=== PATIENT | female | born 1960 | race Caucasian/White ===

== ENCOUNTER 2021-03-30 17:39 | Inpatient (IN) ==
[2021-03-31] MEDS ORDERED: Saline Nasal Spray 44 ML BOTTLE NS PRN (01:04)
[2021-03-31] MEDS: predniSONE 20 MG TABLET PO SCH (09:13)
[2021-03-31] MEDS: Mirtazapine 15 MG TABLET PO SCH (09:13)
[2021-03-31] MEDS: Folic Acid 1 MG TABLET PO SCH (09:13)
[2021-03-31] MEDS: Tacrolimus [Prograf] 1 MG PO SCH ×2 (09:14→20:27)
[2021-03-31 10:14] LABS: Calcium 8.9 mg/dL (8.6-10.3); Potassium 4.2 mEq/L (3.5-5.1)
[2021-03-31 10:15] LABS: Eosinophils % 0.4 %; Hematocrit 24.6 % (35.3-44.9); Hemoglobin 7.2 g/dL (11.5-15.4); Immature Granulocytes % 1.4 % (0-4); Lymphocytes # 0.6 K/mcL (0.6-4.6); Lymphocytes % 21.6 %; Mean Corpuscular HGB Conc 29.3 g/dL (31.6-35.5); Mean Corpuscular Hemoglobin 28.8 pg (28.0-33.3); Mean Corpuscular Volume 98.4 fL (83.0-100.0); Mean Platelet Volume 12.9 fL (9.4-12.4); Monocytes # 0.2 K/mcL (0.0-1.3); Monocytes % 6.7 %; Red Cell Distribution Width 15.3 % (11.5-14.5); Segmented Neutrophils % 69.9 %; White Blood Count 2.8 K/mcL (4.3-11.1)
[2021-03-31 10:31] LABS: Platelet Count 89 K/mcL (140-400)
[2021-03-31] MEDS: Tobramycin for INHALATION 300 MG/5 ML AMPUL IH SCH ×2 (11:11→20:44)
[2021-04-01] MEDS: Mirtazapine 15 MG TABLET PO SCH (08:29)
[2021-04-01] MEDS: predniSONE 20 MG TABLET PO SCH (08:29)
[2021-04-01] MEDS: Folic Acid 1 MG TABLET PO SCH (08:29)
[2021-04-01] MEDS: Tacrolimus [Prograf] 1 MG PO SCH ×2 (08:30→19:47)
[2021-04-01] MEDS: Tobramycin for INHALATION 300 MG/5 ML AMPUL IH SCH ×2 (11:07→21:36)
[2021-04-02] MEDS: Tobramycin for INHALATION 300 MG/5 ML AMPUL IH SCH ×2 (09:56→21:57)
[2021-04-02] MEDS: predniSONE 20 MG TABLET PO SCH (10:01)
[2021-04-02] MEDS: Mirtazapine 15 MG TABLET PO SCH (10:01)
[2021-04-02] MEDS: Folic Acid 1 MG TABLET PO SCH (10:01)
[2021-04-02] MEDS: Tacrolimus [Prograf] 1 MG PO SCH ×2 (10:03→20:35)
[2021-04-02] MEDS: Sulfamethoxazole/Trimeth Oral Soln 400-80mg/10 ML UDC PO SCH (10:06)
[2021-04-02] MEDS ORDERED: *HR* Metoprolol 5 MG/5 ML VIAL IVP ONE ×2 (17:12→17:15)
[2021-04-03] MEDS: Mirtazapine 15 MG TABLET PO SCH (08:04)
[2021-04-03] MEDS: Folic Acid 1 MG TABLET PO SCH (08:04)
[2021-04-03] MEDS: predniSONE 20 MG TABLET PO SCH (08:05)
[2021-04-03] MEDS: Tacrolimus [Prograf] 1 MG PO SCH ×2 (08:49→23:33)
[2021-04-03] MEDS: Tobramycin for INHALATION 300 MG/5 ML AMPUL IH SCH ×2 (10:13→21:48)
[2021-04-03 17:47] LABS: Calcium 8.7 mg/dL (8.6-10.3); Magnesium 2.1 mg/dL (1.6-2.6); Potassium 4.8 mEq/L (3.5-5.1)
[2021-04-04] MEDS: Mirtazapine 15 MG TABLET PO SCH (07:55)
[2021-04-04] MEDS: predniSONE 20 MG TABLET PO SCH (07:56)
[2021-04-04] MEDS: Folic Acid 1 MG TABLET PO SCH (07:57)
[2021-04-04] MEDS: Tacrolimus [Prograf] 1 MG PO SCH ×2 (07:57→20:12)
[2021-04-04] MEDS: Ondansetron 4 MG/2 ML VIAL IVP PRN (09:07)
[2021-04-04] MEDS: Tobramycin for INHALATION 300 MG/5 ML AMPUL IH SCH ×2 (10:04→20:35)
[2021-04-04] MEDS: Sulfamethoxazole/Trimeth Oral Soln 400-80mg/10 ML UDC PO SCH (10:34)
[2021-04-04] MEDS ORDERED: *HR* Metoprolol 5 MG/5 ML VIAL IVP ONE ×2 (17:28→17:30)
[2021-04-05] MEDS: Folic Acid 1 MG TABLET PO SCH (08:19)
[2021-04-05] MEDS: predniSONE 20 MG TABLET PO SCH (08:19)
[2021-04-05] MEDS: Mirtazapine 15 MG TABLET PO SCH (08:19)
[2021-04-05] MEDS: Tacrolimus [Prograf] 1 MG PO SCH ×2 (08:21→19:47)
[2021-04-05] MEDS: Tobramycin for INHALATION 300 MG/5 ML AMPUL IH SCH ×2 (10:00→21:06)
[2021-04-06] MEDS: Folic Acid 1 MG TABLET PO SCH (08:43)
[2021-04-06] MEDS: predniSONE 20 MG TABLET PO SCH (08:43)
[2021-04-06] MEDS: Tacrolimus [Prograf] 1 MG PO SCH ×2 (08:44→20:48)
[2021-04-06] MEDS: Mirtazapine 15 MG TABLET PO SCH (08:44)
[2021-04-06] MEDS: Tobramycin for INHALATION 300 MG/5 ML AMPUL IH SCH ×2 (10:11→22:28)
[2021-04-06] MEDS: Sulfamethoxazole/Trimeth Oral Soln 400-80mg/10 ML UDC PO SCH (10:35)
[2021-04-06] MEDS ORDERED: *HR* Metoprolol 5 MG/5 ML VIAL IVP PRN (16:29)
[2021-04-07 08:36] LABS: Basophils % 0.2 %; Eosinophils % 0.7 %; Hematocrit 23.5 % (35.3-44.9); Hemoglobin 7.2 g/dL (11.5-15.4); Immature Granulocytes % 1.2 % (0-4); Lymphocytes # 0.8 K/mcL (0.6-4.6); Lymphocytes % 19.1 %; Mean Corpuscular HGB Conc 30.6 g/dL (31.6-35.5); Mean Corpuscular Hemoglobin 29.6 pg (28.0-33.3); Mean Corpuscular Volume 96.7 fL (83.0-100.0); Mean Platelet Volume 12.7 fL (9.4-12.4); Monocytes # 0.3 K/mcL (0.0-1.3); Monocytes % 7.4 %; Nucleated Red Blood Cells 0.5 /100 WBC (0); Platelet Count 136 K/mcL (140-400); Red Blood Count 2.43 M/mcL (3.82-4.97); Red Cell Distribution Width 16.8 % (11.5-14.5); Segmented Neutrophils % 71.4 %; White Blood Count 4.2 K/mcL (4.3-11.1)
[2021-04-07 08:55] LABS: Calcium 8.6 mg/dL (8.6-10.3); Potassium 5.2 mEq/L (3.5-5.1)
[2021-04-07] MEDS: predniSONE 20 MG TABLET PO SCH (10:34)
[2021-04-07] MEDS: Folic Acid 1 MG TABLET PO SCH (10:34)
[2021-04-07] MEDS: Mirtazapine 15 MG TABLET PO SCH (10:35)
[2021-04-07] MEDS: Tacrolimus [Prograf] 1 MG PO SCH ×2 (10:37→18:42)
[2021-04-07] MEDS: Albuterol 2.5 MG/3 ML NEBULIZER IH PRN (13:17)
[2021-04-08] MEDS: predniSONE 20 MG TABLET PO SCH (08:00)
[2021-04-08] MEDS: Folic Acid 1 MG TABLET PO SCH (08:00)
[2021-04-08] MEDS: Mirtazapine 15 MG TABLET PO SCH (08:00)
[2021-04-08] MEDS: Tacrolimus [Prograf] 1 MG PO SCH ×2 (08:01→20:36)
[2021-04-09] MEDS: Mirtazapine 15 MG TABLET PO SCH (09:23)
[2021-04-09] MEDS: Folic Acid 1 MG TABLET PO SCH (09:30)
[2021-04-09] MEDS: Sulfamethoxazole/Trimeth Oral Soln 400-80mg/10 ML UDC PO SCH (09:36)
[2021-04-09] MEDS: Tacrolimus [Prograf] 1 MG PO SCH ×2 (10:41→19:46)
[2021-04-09] MEDS: Albuterol 2.5 MG/3 ML NEBULIZER IH PRN (19:51)
[2021-04-10] MEDS: Albuterol 2.5 MG/3 ML NEBULIZER IH PRN ×2 (05:11→17:46)
[2021-04-10] MEDS: Folic Acid 1 MG TABLET PO SCH (08:20)
[2021-04-10] MEDS: Mirtazapine 15 MG TABLET PO SCH (08:20)
[2021-04-10] MEDS: Tacrolimus [Prograf] 1 MG PO SCH ×2 (08:21→21:16)
[2021-04-11] MEDS: Albuterol 2.5 MG/3 ML NEBULIZER IH PRN ×2 (02:20→20:23)
[2021-04-11] MEDS: Sulfamethoxazole/Trimeth Oral Soln 400-80mg/10 ML UDC PO SCH (09:14)
[2021-04-11] MEDS: Mirtazapine 15 MG TABLET PO SCH (09:14)
[2021-04-11] MEDS: Folic Acid 1 MG TABLET PO SCH (09:14)
[2021-04-11] MEDS: Tacrolimus [Prograf] 1 MG PO SCH ×2 (09:17→20:54)
[2021-04-11 09:38] LABS: Eosinophils # 0.1 K/mcL (0.0-0.6); Eosinophils % 1.5 %; Hematocrit 24.3 % (35.3-44.9); Hemoglobin 7.1 g/dL (11.5-15.4); Immature Granulocytes % 0.3 % (0-4); Lymphocytes # 0.6 K/mcL (0.6-4.6); Lymphocytes % 17.5 %; Mean Corpuscular HGB Conc 29.2 g/dL (31.6-35.5); Mean Corpuscular Volume 99.2 fL (83.0-100.0); Mean Platelet Volume 11.7 fL (9.4-12.4); Monocytes # 0.4 K/mcL (0.0-1.3); Neutrophils # 2.3 K/mcL (1.6-8.9); Red Blood Count 2.45 M/mcL (3.82-4.97); Segmented Neutrophils % 69.7 %; White Blood Count 3.3 K/mcL (4.3-11.1)
[2021-04-11 09:45] LABS: Platelet Count 87 K/mcL (140-400)
[2021-04-11 10:06] LABS: Calcium 8.8 mg/dL (8.6-10.3); Potassium 5.4 mEq/L (3.5-5.1)
[2021-04-11 11:01] LABS: Platelet Estimate Decreased (Normal)
[2021-04-11] MEDS ORDERED: *HR* LORazepam 2 MG/ML VIAL IVP ONE (14:56)
[2021-04-12] MEDS: Albuterol 2.5 MG/3 ML NEBULIZER IH PRN ×2 (02:42→16:58)
[2021-04-12] MEDS: Mirtazapine 15 MG TABLET PO SCH (08:34)
[2021-04-12] MEDS: Folic Acid 1 MG TABLET PO SCH (08:34)
[2021-04-12] MEDS: Tacrolimus [Prograf] 1 MG PO SCH ×2 (08:35→20:28)
[2021-04-13] MEDS: Albuterol 2.5 MG/3 ML NEBULIZER IH PRN (01:23)
[2021-04-13] MEDS: Mirtazapine 15 MG TABLET PO SCH (08:49)
[2021-04-13] MEDS: Tacrolimus [Prograf] 1 MG PO SCH ×2 (09:00→19:59)
[2021-04-13] MEDS: *HR* LORazepam 0.5 MG TABLET PO PRN (11:05)
[2021-04-13] MEDS: Folic Acid 1 MG TABLET PO SCH (16:58)
[2021-04-13] MEDS: Sulfamethoxazole/Trimeth Oral Soln 400-80mg/10 ML UDC PO SCH (16:58)
[2021-04-14 07:21] LABS: Hematocrit 22.7 % (35.3-44.9); Hemoglobin 6.6 g/dL (11.5-15.4); Mean Corpuscular HGB Conc 29.1 g/dL (31.6-35.5); Mean Corpuscular Hemoglobin 29.2 pg (28.0-33.3); Mean Corpuscular Volume 100.4 fL (83.0-100.0); Mean Platelet Volume 10.3 fL (9.4-12.4); Red Blood Count 2.26 M/mcL (3.82-4.97); Red Cell Distribution Width 18.5 % (11.5-14.5); White Blood Count 2.7 K/mcL (4.3-11.1)
[2021-04-14 07:34] LABS: Platelet Count 67 K/mcL (140-400)
[2021-04-14 07:47] LABS: Calcium 8.1 mg/dL (8.6-10.3); Potassium 4.5 mEq/L (3.5-5.1)
[2021-04-14] MEDS: Tacrolimus [Prograf] 1 MG PO SCH ×2 (08:27→20:26)
[2021-04-14] MEDS: Folic Acid 1 MG TABLET PO SCH (08:27)
[2021-04-14] MEDS: Mirtazapine 15 MG TABLET PO SCH (08:27)
[2021-04-14] MEDS ORDERED: 0.9 % Sodium Chloride 250 ML IVC SCH (13:00)
[2021-04-14] MEDS: *HR* LORazepam 0.5 MG TABLET PO PRN (20:32)
[2021-04-14] MEDS: Albuterol 2.5 MG/3 ML NEBULIZER IH PRN (20:53)
[2021-04-15 06:54] LABS: Eosinophils % 1.7 %; Hematocrit 27.1 % (35.3-44.9); Immature Granulocytes % 0.8 % (0-4); Lymphocytes # 0.5 K/mcL (0.6-4.6); Lymphocytes % 20.2 %; Mean Corpuscular HGB Conc 29.5 g/dL (31.6-35.5); Mean Corpuscular Hemoglobin 29.9 pg (28.0-33.3); Mean Corpuscular Volume 101.1 fL (83.0-100.0); Mean Platelet Volume 10.5 fL (9.4-12.4); Monocytes # 0.3 K/mcL (0.0-1.3); Monocytes % 13.6 %; Neutrophils # 1.5 K/mcL (1.6-8.9); Red Blood Count 2.68 M/mcL (3.82-4.97); Red Cell Distribution Width 17.9 % (11.5-14.5); Segmented Neutrophils % 63.7 %; White Blood Count 2.4 K/mcL (4.3-11.1)
[2021-04-15 07:07] LABS: Platelet Count 66 K/mcL (140-400)
[2021-04-15 07:40] LABS: Platelet Estimate Marked Decrease (Normal)
[2021-04-15] MEDS: Folic Acid 1 MG TABLET PO SCH (08:24)
[2021-04-15] MEDS: Tacrolimus [Prograf] 1 MG PO SCH ×2 (08:25→21:14)
[2021-04-15] MEDS: Mirtazapine 15 MG TABLET PO SCH (08:25)
[2021-04-15] MEDS: *HR* LORazepam 0.5 MG TABLET PO PRN (21:14)
[2021-04-16 06:57] LABS: Hemoglobin 7.9 g/dL (11.5-15.4); Mean Corpuscular HGB Conc 29.3 g/dL (31.6-35.5); Mean Corpuscular Hemoglobin 29.9 pg (28.0-33.3); Mean Corpuscular Volume 102.3 fL (83.0-100.0); Mean Platelet Volume 11.8 fL (9.4-12.4); Red Blood Count 2.64 M/mcL (3.82-4.97); Red Cell Distribution Width 17.2 % (11.5-14.5); White Blood Count 3.6 K/mcL (4.3-11.1)
[2021-04-16 06:59] LABS: Platelet Count 78 K/mcL (140-400)
[2021-04-16 07:22] LABS: Calcium 8.9 mg/dL (8.6-10.3); Magnesium 2.2 mg/dL (1.6-2.6); Potassium 5.4 mEq/L (3.5-5.1)
[2021-04-16] MEDS: Mirtazapine 15 MG TABLET PO SCH (09:05)
[2021-04-16] MEDS: Tacrolimus [Prograf] 1 MG PO SCH ×2 (09:05→20:15)
[2021-04-16] MEDS: Folic Acid 1 MG TABLET PO SCH (09:05)
[2021-04-16] MEDS: Sulfamethoxazole/Trimeth Oral Soln 400-80mg/10 ML UDC PO SCH ×2 (09:07→09:16)
[2021-04-16] MEDS: *HR* LORazepam 0.5 MG TABLET PO PRN (17:59)
[2021-04-16] MEDS ORDERED: Tobramycin for INHALATION 300 MG/5 ML AMPUL IH SCH (18:00)
[2021-04-16] MEDS: Albuterol 2.5 MG/3 ML NEBULIZER IH PRN (20:43)
[2021-04-16] MEDS: Tobramycin for INHALATION 300 MG/5 ML AMPUL IH SCH (20:43)
[2021-04-17 08:40] LABS: Basophils % 0.4 %; Eosinophils # 0.1 K/mcL (0.0-0.6); Eosinophils % 2.7 %; Hemoglobin 7.6 g/dL (11.5-15.4); Immature Granulocytes % 0.4 % (0-4); Lymphocytes # 0.6 K/mcL (0.6-4.6); Mean Corpuscular HGB Conc 29.2 g/dL (31.6-35.5); Mean Corpuscular Hemoglobin 29.3 pg (28.0-33.3); Mean Corpuscular Volume 100.4 fL (83.0-100.0); Mean Platelet Volume 11.2 fL (9.4-12.4); Monocytes # 0.3 K/mcL (0.0-1.3); Monocytes % 11.7 %; Neutrophils # 1.3 K/mcL (1.6-8.9); Red Blood Count 2.59 M/mcL (3.82-4.97); Red Cell Distribution Width 17.2 % (11.5-14.5); Segmented Neutrophils % 58.8 %; White Blood Count 2.2 K/mcL (4.3-11.1)
[2021-04-17 08:44] LABS: Platelet Count 64 K/mcL (140-400)
[2021-04-17] MEDS: Folic Acid 1 MG TABLET PO SCH (08:55)
[2021-04-17] MEDS: Mirtazapine 15 MG TABLET PO SCH (08:56)
[2021-04-17] MEDS: Tacrolimus [Prograf] 1 MG PO SCH ×2 (08:56→20:13)
[2021-04-17] MEDS: Tobramycin for INHALATION 300 MG/5 ML AMPUL IH SCH ×2 (10:41→22:05)
[2021-04-17] MEDS: *HR* LORazepam 0.5 MG TABLET PO PRN (23:04)
[2021-04-18 07:27] LABS: Eosinophils # 0.1 K/mcL (0.0-0.6); Hematocrit 26.2 % (35.3-44.9); Hemoglobin 7.6 g/dL (11.5-15.4); Mean Corpuscular Hemoglobin 29.3 pg (28.0-33.3); Mean Corpuscular Volume 101.2 fL (83.0-100.0); Mean Platelet Volume 11.8 fL (9.4-12.4); Red Blood Count 2.59 M/mcL (3.82-4.97); Red Cell Distribution Width 17.1 % (11.5-14.5)
[2021-04-18 07:40] LABS: Calcium 8.7 mg/dL (8.6-10.3); Potassium 4.3 mEq/L (3.5-5.1)
[2021-04-18 07:45] LABS: Platelet Count 75 K/mcL (140-400)
[2021-04-18] MEDS: Mirtazapine 15 MG TABLET PO SCH (07:51)
[2021-04-18] MEDS: *HR* LORazepam 0.5 MG TABLET PO PRN ×2 (07:52→17:52)
[2021-04-18] MEDS: Tacrolimus [Prograf] 1 MG PO SCH ×2 (07:52→19:41)
[2021-04-18] MEDS: Folic Acid 1 MG TABLET PO SCH (07:52)
[2021-04-18 08:21] LABS: Lymphocytes # 0.7 K/mcL (0.6-4.6); Neutrophils # 1.2 K/mcL (1.6-8.9)
[2021-04-18 08:22] LABS: Platelet Estimate Decreased (Normal)
[2021-04-18] MEDS: Sulfamethoxazole/Trimeth Oral Soln 400-80mg/10 ML UDC PO SCH (09:59)
[2021-04-18] MEDS: Tobramycin for INHALATION 300 MG/5 ML AMPUL IH SCH ×2 (10:35→21:48)
[2021-04-19] MEDS: Mirtazapine 15 MG TABLET PO SCH (08:39)
[2021-04-19] MEDS: *HR* LORazepam 0.5 MG TABLET PO PRN (08:40)
[2021-04-19] MEDS: Folic Acid 1 MG TABLET PO SCH (08:40)
[2021-04-19] MEDS: Tacrolimus [Prograf] 1 MG PO SCH ×2 (08:43→20:49)
[2021-04-19] MEDS: Tobramycin for INHALATION 300 MG/5 ML AMPUL IH SCH ×2 (10:19→20:43)
[2021-04-20] MEDS: Mirtazapine 15 MG TABLET PO SCH (08:09)
[2021-04-20] MEDS: Tacrolimus [Prograf] 1 MG PO SCH ×2 (08:10→21:35)
[2021-04-20] MEDS: Folic Acid 1 MG TABLET PO SCH (08:10)
[2021-04-20] MEDS: Sulfamethoxazole/Trimeth Oral Soln 400-80mg/10 ML UDC PO SCH (08:15)
[2021-04-20] MEDS: Tobramycin for INHALATION 300 MG/5 ML AMPUL IH SCH ×2 (09:49→22:30)
[2021-04-20] MEDS: *HR* LORazepam 0.5 MG TABLET PO PRN ×2 (12:45→17:40)
[2021-04-21 08:23] LABS: Hematocrit 28.4 % (35.3-44.9); Hemoglobin 8.1 g/dL (11.5-15.4)
[2021-04-21] MEDS: Ondansetron 4 MG/2 ML VIAL IVP PRN ×2 (08:58→21:16)
[2021-04-21] MEDS: Folic Acid 1 MG TABLET PO SCH (09:01)
[2021-04-21] MEDS: Tacrolimus [Prograf] 1 MG PO SCH ×2 (09:01→21:17)
[2021-04-21] MEDS: Mirtazapine 15 MG TABLET PO SCH (09:02)
[2021-04-21] MEDS: Tobramycin for INHALATION 300 MG/5 ML AMPUL IH SCH ×2 (10:41→21:56)
[2021-04-22] MEDS: Ondansetron 4 MG/2 ML VIAL IVP PRN ×2 (06:54→21:25)
[2021-04-22 08:24] LABS: Basophils % 0.4 %; Eosinophils # 0.1 K/mcL (0.0-0.6); Eosinophils % 2.8 %; Hematocrit 29.7 % (35.3-44.9); Hemoglobin 8.3 g/dL (11.5-15.4); Immature Granulocytes % 0.4 % (0-4); Lymphocytes # 0.9 K/mcL (0.6-4.6); Lymphocytes % 37.2 %; Mean Corpuscular HGB Conc 27.9 g/dL (31.6-35.5); Mean Corpuscular Volume 107.2 fL (83.0-100.0); Mean Platelet Volume 11.5 fL (9.4-12.4); Monocytes # 0.2 K/mcL (0.0-1.3); Monocytes % 9.7 %; Neutrophils # 1.2 K/mcL (1.6-8.9); Red Blood Count 2.77 M/mcL (3.82-4.97); Red Cell Distribution Width 17.5 % (11.5-14.5); Segmented Neutrophils % 49.5 %; White Blood Count 2.5 K/mcL (4.3-11.1)
[2021-04-22 08:33] LABS: Platelet Count 99 K/mcL (140-400)
[2021-04-22 08:37] LABS: Calcium 9.3 mg/dL (8.6-10.3); Potassium 4.3 mEq/L (3.5-5.1)
[2021-04-22] MEDS: Mirtazapine 15 MG TABLET PO SCH (08:37)
[2021-04-22] MEDS: Folic Acid 1 MG TABLET PO SCH (08:37)
[2021-04-22] MEDS: Tacrolimus [Prograf] 1 MG PO SCH ×2 (08:37→21:24)
[2021-04-22] MEDS: Tobramycin for INHALATION 300 MG/5 ML AMPUL IH SCH ×2 (09:30→22:38)
[2021-04-23] MEDS: Folic Acid 1 MG TABLET PO SCH (08:08)
[2021-04-23] MEDS: Mirtazapine 15 MG TABLET PO SCH (08:08)
[2021-04-23] MEDS: Sulfamethoxazole/Trimeth Oral Soln 400-80mg/10 ML UDC PO SCH (08:12)
[2021-04-23] MEDS: Tacrolimus [Prograf] 1 MG PO SCH ×2 (08:13→21:14)
[2021-04-23] MEDS: Tobramycin for INHALATION 300 MG/5 ML AMPUL IH SCH (09:31)
[2021-04-23] MEDS: *HR* LORazepam 0.5 MG TABLET PO PRN ×2 (12:03→17:53)
[2021-04-23] MEDS: Ondansetron 4 MG/2 ML VIAL IVP PRN (17:28)
[2021-04-24] MEDS: *HR* LORazepam 0.5 MG TABLET PO PRN (00:41)
[2021-04-24] MEDS: Mirtazapine 15 MG TABLET PO SCH (07:23)
[2021-04-24] MEDS: Folic Acid 1 MG TABLET PO SCH (07:23)
[2021-04-24] MEDS: Tacrolimus [Prograf] 1 MG PO SCH ×2 (07:23→19:59)
[2021-04-25] MEDS: Folic Acid 1 MG TABLET PO SCH (08:52)
[2021-04-25] MEDS: Mirtazapine 15 MG TABLET PO SCH (08:52)
[2021-04-25] MEDS: Tacrolimus [Prograf] 1 MG PO SCH ×2 (08:53→20:07)
[2021-04-25] MEDS: Sulfamethoxazole/Trimeth Oral Soln 400-80mg/10 ML UDC PO SCH (09:13)
[2021-04-25] MEDS: Ondansetron 4 MG/2 ML VIAL IVP PRN (09:13)
[2021-04-25] MEDS: *HR* LORazepam 0.5 MG TABLET PO PRN ×2 (11:21→17:23)
[2021-04-26] MEDS ORDERED: 0.9 % Sodium Chloride 250 ML IVC ONE (01:02)
[2021-04-26] MEDS: Mirtazapine 15 MG TABLET PO SCH (08:30)
[2021-04-26] MEDS: Folic Acid 1 MG TABLET PO SCH (08:30)
[2021-04-26] MEDS: Tacrolimus [Prograf] 1 MG PO SCH ×2 (08:31→20:07)
[2021-04-26] MEDS: Ondansetron 4 MG/2 ML VIAL IVP PRN (15:52)
[2021-04-27] MEDS: Folic Acid 1 MG TABLET PO SCH (09:00)
[2021-04-27] MEDS ORDERED: Patient Taking Own Medication 1 EACH PO SCH (09:00)
[2021-04-27] MEDS: Mirtazapine 15 MG TABLET PO SCH (09:01)
[2021-04-27] MEDS: Sulfamethoxazole/Trimeth Oral Soln 400-80mg/10 ML UDC PO SCH (09:24)
[2021-04-27 09:36] LABS: Basophils % 0.4 %; Eosinophils # 0.1 K/mcL (0.0-0.6); Eosinophils % 3.2 %; Hematocrit 29.6 % (35.3-44.9); Hemoglobin 8.8 g/dL (11.5-15.4); Immature Granulocytes % 0.4 % (0-4); Lymphocytes # 0.8 K/mcL (0.6-4.6); Lymphocytes % 31.5 %; Mean Corpuscular HGB Conc 29.7 g/dL (31.6-35.5); Mean Corpuscular Hemoglobin 30.1 pg (28.0-33.3); Mean Corpuscular Volume 101.4 fL (83.0-100.0); Mean Platelet Volume 11.3 fL (9.4-12.4); Monocytes # 0.2 K/mcL (0.0-1.3); Monocytes % 9.3 %; Neutrophils # 1.4 K/mcL (1.6-8.9); Platelet Count 124 K/mcL (140-400); Red Blood Count 2.92 M/mcL (3.82-4.97); Red Cell Distribution Width 17.8 % (11.5-14.5); Segmented Neutrophils % 55.2 %; White Blood Count 2.5 K/mcL (4.3-11.1)
[2021-04-27 10:28] LABS: Albumin 3.7 g/dL (3.5-5.7); Albumin/Globulin Ratio 1.8 (1.1-2.2); Bilirubin,Total 0.4 mg/dL (0.3-1.0); Calcium 9.3 mg/dL (8.6-10.3); Globulin 2.1 g/dL (2.4-3.5); Potassium 3.7 mEq/L (3.5-5.1); Total Protein 5.8 g/dL (6.4-8.9)
[2021-04-27] MEDS: *HR* LORazepam 0.5 MG TABLET PO PRN (11:41)
[2021-04-27] MEDS: Ondansetron 4 MG/2 ML VIAL IVP PRN (17:22)
[2021-04-27] MEDS: Patient Taking Own Medication 1 EACH PO SCH (19:59)
[2021-04-28] MEDS: Mirtazapine 15 MG TABLET PO SCH (08:22)
[2021-04-28] MEDS: Folic Acid 1 MG TABLET PO SCH (08:22)
[2021-04-28] MEDS: Patient Taking Own Medication 1 EACH PO SCH ×2 (08:27→19:57)
[2021-04-29] MEDS: Patient Taking Own Medication 1 EACH PO SCH ×2 (08:58→21:46)
[2021-04-29] MEDS: Mirtazapine 15 MG TABLET PO SCH (08:58)
[2021-04-29] MEDS: Folic Acid 1 MG TABLET PO SCH (08:58)
[2021-04-29] MEDS: Albuterol 2.5 MG/3 ML NEBULIZER IH PRN (20:39)
[2021-04-29] MEDS: Ondansetron 4 MG/2 ML VIAL IVP PRN (21:46)
[2021-04-30] MEDS: Ondansetron 4 MG/2 ML VIAL IVP PRN ×2 (06:42→18:47)
[2021-04-30] MEDS: Mirtazapine 15 MG TABLET PO SCH (09:28)
[2021-04-30] MEDS: Folic Acid 1 MG TABLET PO SCH (09:28)
[2021-04-30] MEDS: Patient Taking Own Medication 1 EACH PO SCH ×2 (09:28→21:54)
[2021-04-30] MEDS: Sulfamethoxazole/Trimeth Oral Soln 400-80mg/10 ML UDC PO SCH (09:43)
[2021-04-30] MEDS: *HR* LORazepam 0.5 MG TABLET PO PRN (18:29)
[2021-04-30] MEDS ORDERED: 0.9 % Sodium Chloride 250 ML IVC SCH (22:00)
[2021-05-01] MEDS: Mirtazapine 15 MG TABLET PO SCH (08:21)
[2021-05-01] MEDS: Renal Vitamin 1 CAP CAPSULE PO SCH (08:21)
[2021-05-01] MEDS: Folic Acid 1 MG TABLET PO SCH (08:21)
[2021-05-01] MEDS: Patient Taking Own Medication 1 EACH PO SCH ×2 (08:22→21:00)
[2021-05-01] MEDS ORDERED: Capsaicin 0.025% 60 GM TUBE TP PRN (13:59)
[2021-05-01] MEDS: *HR* LORazepam 0.5 MG TABLET PO PRN (20:54)
[2021-05-01] MEDS: Ondansetron 4 MG/2 ML VIAL IVP PRN (20:54)
[2021-05-02 07:55] LABS: Basophils % 0.4 %; Eosinophils # 0.1 K/mcL (0.0-0.6); Hemoglobin 8.5 g/dL (11.5-15.4); Immature Granulocytes % 0.4 % (0-4); Lymphocytes % 42.7 %; Mean Corpuscular HGB Conc 29.3 g/dL (31.6-35.5); Mean Corpuscular Hemoglobin 29.9 pg (28.0-33.3); Mean Corpuscular Volume 102.1 fL (83.0-100.0); Monocytes # 0.3 K/mcL (0.0-1.3); Monocytes % 14.1 %; Neutrophils # 0.9 K/mcL (1.6-8.9); Red Blood Count 2.84 M/mcL (3.82-4.97); Segmented Neutrophils % 39.4 %; White Blood Count 2.3 K/mcL (4.3-11.1)
[2021-05-02 07:59] LABS: Platelet Count 92 K/mcL (140-400)
[2021-05-02 08:08] LABS: Calcium 9.2 mg/dL (8.6-10.3); Potassium 4.5 mEq/L (3.5-5.1)
[2021-05-02] MEDS: Mirtazapine 15 MG TABLET PO SCH (09:09)
[2021-05-02] MEDS: Renal Vitamin 1 CAP CAPSULE PO SCH (09:10)
[2021-05-02] MEDS: Folic Acid 1 MG TABLET PO SCH (09:10)
[2021-05-02 09:13] LABS: Anisocytosis 1+ (Not Present); Platelet Estimate Decreased (Normal)
[2021-05-02] MEDS: Sulfamethoxazole/Trimeth Oral Soln 400-80mg/10 ML UDC PO SCH (09:37)
[2021-05-02] MEDS: Patient Taking Own Medication 1 EACH PO SCH ×2 (09:37→19:59)
[2021-05-02] MEDS: *HR* LORazepam 0.5 MG TABLET PO PRN (17:05)
[2021-05-02] MEDS: Ondansetron 4 MG/2 ML VIAL IVP PRN (20:27)
[2021-05-03 03:13] LABS: Calcium 8.9 mg/dL (8.6-10.3); Magnesium 1.8 mg/dL (1.6-2.6); Phosphorous 2.7 mg/dL (2.7-4.5); Potassium 3.6 mEq/L (3.5-5.1)
[2021-05-03] MEDS: Apixaban 5 MG TABLET PO SCH ×3 (03:16→20:03)
[2021-05-03] MEDS: Mirtazapine 15 MG TABLET PO SCH (08:50)
[2021-05-03] MEDS: Folic Acid 1 MG TABLET PO SCH (08:51)
[2021-05-03] MEDS: Renal Vitamin 1 CAP CAPSULE PO SCH (08:51)
[2021-05-03] MEDS: Patient Taking Own Medication 1 EACH PO SCH ×2 (09:01→20:03)
[2021-05-03] MEDS: Ondansetron 4 MG/2 ML VIAL IVP PRN (20:07)
[2021-05-04] MEDS: Folic Acid 1 MG TABLET PO SCH (09:13)
[2021-05-04] MEDS: Mirtazapine 15 MG TABLET PO SCH (09:13)
[2021-05-04] MEDS: Apixaban 5 MG TABLET PO SCH ×2 (09:14→19:53)
[2021-05-04] MEDS: Renal Vitamin 1 CAP CAPSULE PO SCH (09:16)
[2021-05-04] MEDS: Sulfamethoxazole/Trimeth Oral Soln 400-80mg/10 ML UDC PO SCH (09:25)
[2021-05-04] MEDS: Patient Taking Own Medication 1 EACH PO SCH (09:25)
[2021-05-04] MEDS: *HR* LORazepam 0.5 MG TABLET PO PRN ×2 (11:36→17:39)
[2021-05-04] MEDS: TACROLIMUS 1 MG PO SCH (19:53)
[2021-05-04] MEDS: Ondansetron 4 MG/2 ML VIAL IVP PRN (19:54)
[2021-05-05] MEDS: Renal Vitamin 1 CAP CAPSULE PO SCH (09:02)
[2021-05-05] MEDS: Mirtazapine 15 MG TABLET PO SCH (09:02)
[2021-05-05] MEDS: Apixaban 5 MG TABLET PO SCH ×2 (09:03→20:28)
[2021-05-05] MEDS: Folic Acid 1 MG TABLET PO SCH (09:03)
[2021-05-05] MEDS: TACROLIMUS 1 MG PO SCH ×2 (09:03→20:28)
[2021-05-06 09:50] LABS: Basophils % 0.5 %; Eosinophils # 0.1 K/mcL (0.0-0.6); Eosinophils % 2.3 %; Hematocrit 32.2 % (35.3-44.9); Hemoglobin 9.1 g/dL (11.5-15.4); Immature Granulocytes % 0.5 % (0-4); Lymphocytes # 0.9 K/mcL (0.6-4.6); Lymphocytes % 39.6 %; Mean Corpuscular HGB Conc 28.3 g/dL (31.6-35.5); Mean Corpuscular Volume 106.3 fL (83.0-100.0); Mean Platelet Volume 10.9 fL (9.4-12.4); Monocytes # 0.3 K/mcL (0.0-1.3); Monocytes % 15.2 %; Neutrophils # 0.9 K/mcL (1.6-8.9); Platelet Count 109 K/mcL (140-400); Red Blood Count 3.03 M/mcL (3.82-4.97); Red Cell Distribution Width 17.1 % (11.5-14.5); Segmented Neutrophils % 41.9 %; White Blood Count 2.2 K/mcL (4.3-11.1)
[2021-05-06 10:01] LABS: Calcium 9.9 mg/dL (8.6-10.3); Potassium 4.8 mEq/L (3.5-5.1)
[2021-05-06] MEDS: Apixaban 5 MG TABLET PO SCH ×2 (10:06→19:43)
[2021-05-06] MEDS: Mirtazapine 15 MG TABLET PO SCH (10:06)
[2021-05-06] MEDS: TACROLIMUS 1 MG PO SCH ×2 (10:06→19:43)
[2021-05-06] MEDS: Folic Acid 1 MG TABLET PO SCH (10:06)
[2021-05-06] MEDS: Renal Vitamin 1 CAP CAPSULE PO SCH (10:06)
[2021-05-06] MEDS: Ondansetron 4 MG/2 ML VIAL IVP PRN (19:42)
[2021-05-07] MEDS: Mirtazapine 15 MG TABLET PO SCH (09:12)
[2021-05-07] MEDS: Apixaban 5 MG TABLET PO SCH ×2 (09:12→20:00)
[2021-05-07] MEDS: Folic Acid 1 MG TABLET PO SCH (09:13)
[2021-05-07] MEDS: TACROLIMUS 1 MG PO SCH ×2 (09:13→20:02)
[2021-05-07] MEDS: Renal Vitamin 1 CAP CAPSULE PO SCH (09:13)
[2021-05-07] MEDS: Sulfamethoxazole/Trimeth Oral Soln 400-80mg/10 ML UDC PO SCH (09:24)
[2021-05-07] MEDS: Ondansetron 4 MG/2 ML VIAL IVP PRN (10:51)
[2021-05-07] MEDS: *HR* LORazepam 0.5 MG TABLET PO PRN ×2 (11:43→17:25)
[2021-05-07 19:09] VITALS: RESP 18
[2021-05-08 07:07] VITALS: BP 112/66; PULSE 75; TEMP 96.6; O2SAT 100
[2021-05-08] MEDS: Renal Vitamin 1 CAP CAPSULE PO SCH (09:25)
[2021-05-08] MEDS: TACROLIMUS 1 MG PO SCH (09:26)
[2021-05-08] MEDS: Folic Acid 1 MG TABLET PO SCH (09:26)
[2021-05-08] MEDS: Mirtazapine 15 MG TABLET PO SCH (09:26)
[2021-05-08] MEDS: Apixaban 5 MG TABLET PO SCH (09:27)
[2021-05-08] MEDS ORDERED: FLU Vac QV 21-22 (6Month+)/PF 0.5 ML SYRINGE IM ONE (10:13)
== END 2021-05-08 11:00 | disposition home health service (06) | DRG 189 ==
LOC: INPPIK 03-31 00:56
PROVIDERS: ADMIT Internal Medicine; ATTEND Internal Medicine